=== PATIENT | female | born 1970 | race Caucasian/White ===

== ENCOUNTER 2020-11-03 08:55 | Outpatient (REF) | payer BC, OTHER, SELFPAY ==
--- NOTE | ~2020-11-03 | MM_ITS ---
EXAMINATION: MM SCREENING DIGITAL BREAST TOMOSYNTHESIS, BILATERAL CLINICAL INFORMATION: Screening. Asymptomatic. The lifetime risk of breast cancer based on the Tyrer-Cuzick Model is 16%. COMPARISON: Mammography: 01/16/2019, and prior exams dating back to 08/25/2013. Comparison also made with right breast ultrasound 08/17/2016, left breast ultrasound 08/25/2013. TECHNIQUE: Digital breast tomosynthesis is performed in both the craniocaudal and mediolateral oblique views along with computer-aided detection (CAD). Synthesized 2D images are generated from the tomosynthesis. Additional right MLO view is provided. FINDINGS: The breasts are heterogeneously dense, which may obscure small masses (ACR BI-RADS breast composition Category c). There is fine fibronodular parenchymal pattern. Left breast has oval smooth circumscribed masses posterior upper outer quadrant, larger 3 cm consistent with waxing and waning cysts noted on prior imaging. Neither breast shows significant mass or architectural abnormality. There are scattered bilateral calcifications again seen similar to prior exam. The axilla and skin contours are unremarkable. MM/MM tomosynthesis screening BI IMPRESSION: 1. No significant changes from prior studies. 2. Fibrocystic changes upper outer left breast similar to prior exams. ASSESSMENT: BI-RADS 2: Benign RECOMMENDATION: Routine annual mammography screening. This patient's information was entered into a reminder system with a target due date for their next mammogram.
== END 2020-11-03 08:56 | disposition home or self-care (01) ==
LOC: HO.MAMMO 08:55
PROVIDERS: Visit Provider Family Medicine
DX: Z12.31 Encounter for screening mammogram for malignant neoplasm of breast (principal)
CPT/HCPCS: 77063; 77067

== ENCOUNTER 2021-12-23 10:58 | Outpatient (REF) | payer BC, OTHER, SELFPAY ==
--- NOTE | ~2021-12-23 | MM_ITS ---
EXAMINATION: MM SCREENING DIGITAL BREAST TOMOSYNTHESIS, BILATERAL CLINICAL INFORMATION: Screening. Asymptomatic. The lifetime risk of breast cancer based on the Tyrer-Cuzick Model is 14%. COMPARISON: Mammography: 11/03/2020, 08/19/2018, 10/29/2017, ultrasound right breast 08/17/2016, ultrasound left breast 08/25/2013. TECHNIQUE: Digital breast tomosynthesis is performed in both the craniocaudal and mediolateral oblique views along with computer-aided detection (CAD). Synthesized 2D images are generated from the tomosynthesis. FINDINGS: The breasts are heterogeneously dense, which may obscure small masses (ACR BI-RADS breast composition Category c). There is fibrocystic parenchymal pattern with waxing and waning cysts. There is no significant mass. No architectural abnormality. Scattered bilateral isolated and small grouped calcifications are similar to prior studies. The axilla and skin contours are unremarkable. No significant changes from prior exam. MM/MM tomosynthesis screening BI IMPRESSION: No significant changes from prior study. ASSESSMENT: BI-RADS 2: Benign RECOMMENDATION: Routine annual mammography screening. This patient's information was entered into a reminder system with a target due date for their next mammogram.
== END 2021-12-23 10:59 | disposition home or self-care (01) ==
LOC: HO.MAMMO 10:58
PROVIDERS: PCP Family Medicine; Visit Provider Family Medicine
DX: Z12.31 Encounter for screening mammogram for malignant neoplasm of breast (principal)
CPT/HCPCS: 77063; 77067

== ENCOUNTER 2025-02-09 08:45 | Outpatient (REF) | payer BC, OTHER, SELFPAY ==
--- OUTSIDE RECORDS SUMMARY | 2025-02-08 23:59 | XMS_ITS | Continuity of Care Document ---
Author Organization [facility] Address [address] [place] [address]- Care Team Providers Care Skin Diving Teacher Name Role Phone Feliciano DEWEY, Francesca Grayson Primary Care Physici an Encounter [facility] Date(s): 01/09/25 - 02/08/25 [facility] [address], [place] [address] Attending Physician: AdmEliceo lindsay Admitting Physician: AdmtrEliceo Referring Physician: Admtr, Ar8 Encounter Type: Triage Allergies, Adverse Reactions, Alerts Substance Criticality Severity Reaction Reaction Severity Status Biaxin High criticality Severe face swells A ctive Levaquin Active Immunizations Given and Recorded Vaccine Date Status Refusal Reason influenza virus vaccine, inactivated 06/05/23 Tian rded influenza virus vaccine, inactivated 06/09/22 Tian rded influenza virus vaccine, inactivated 03/29/21 Tian rded influenza virus vaccine, inactivated 03/09/20 Tian rded influenza virus vaccine, inactivated 03/31/19 Tian rded influenza virus vaccine, inactivated 04/23/18 Tian rded SARS-CoV-2 (COVID-19) mRNA-1273 vaccine 12/10/20 R ecorded SARS-CoV-2 (COVID-19) mRNA-1273 vaccine 11/12/20 R ecorded Medications Advair HFA 230 mcg / 21 mcg 2 inhalation, Inhalation, 2 times a day, for 90 days, rinse mouth and throat after use, # 3 each, 3Refills, Hard Stop 11/02/25 12:54:00 PM EDT, 11/07/24 12:54:00 PM EDT, Aerosol, [id number], Partial fill upon patient request if the prescription is for a schedule II opioid drug., 158, cm, 11/06/24 15:30:00 EDT, Height Start Date: 11/07/24 Stop Date: 11/02/25 Status: Ordered Quantity: 3.0 Unit: each Repeat number: 4 Indications: Moderate persistent asthma, uncomplicated; Advair HFA 230 mcg / 21 mcg 2 inhalation, Inhalation, 2 times a day, rinse mouth and throat after use, # 3 each, 3 Refills, Maintenance, 11/02/25 12:54:00 PM EDT, Aerosol, [id number], Partial fill upon patientrequest if the prescription is for a schedule II opioid drug., 2 inhalation Inhalation 2 times a day,x90 days,Instr:rinse mouth and throat after use, 158, cm, 01/09/25 9:36:00 EDT, Height Start Date: 11/02/25 Stop Date: 10/28/26 Status: Ordered Quantity: 3.0 Unit: each Repeat number: 4 Indications: Moderate persistent asthma, uncomplicated; Albuterol (Eqv-ProAir HFA) 90 mcg/inh inhalation aerosol 1 inhalation = 90 mcg, Inhalation, Every 4 hours, PRN as needed for shortness of breath or wheezing, # 18 Gm, 2 Refills, Maintenance, 11/06/24 5:00:00 PM EDT, Aerosol, [id number], Partial fill upon patient request if the prescription is for a schedule II opioid drug., 1 inhalationInhalation Every 4 hours,PRN:as needed for shortness of breath or wheezing, 158, cm, 11/06/24 15:30:00 EDT, Height Start Date: 11/06/24 Status: Ordered Quantity: 18.0 Unit: g Repeat number: 3 Indications: Moderate persistent asthma, uncomplicated; Calcium Carbonate By Mouth, 0 Refills, Maintenance, 12/05/12 2:13:28 PM EDT Start Date: 12/05/12 Status: Ordered Repeat number: 1 citalopram 20 mg oral tablet 20 mg, 1, tablet, By Mouth, Daily, # 90 tablet, Refills 1, Tot. Refills 1, Maintenance, 12/22/24 8:00:00 AM EDT, Route to Pharmacy Electronically, [id number], Partial fill upon patient request if the prescription is for a schedule II opioid drug., 158, cm, 11/06/24 15:30:00 EDT, Height Start Date: 12/22/24 Status: Ordered Quantity: 90.0 Unit: tablet Repeat number: 2 Indications: Anxiety disorder, unspecified; progesterone 100 mg oral capsule 1 capsule = 100 mg, By Mouth, Daily at bedtime, for 90 days, # 90 capsule, 3 Refills, Acute :07:00 PM EDT, 11/06/24 5:07:00 PM EDT, [id number], Partial fill upon patient request if the prescription is for a schedule II opioid drug., 158, cm, 11/06/24 15:30:00 EDT, Height Start Date: 11/06/24 Stop Date: 11/01/25 Status: Ordered Quantity: 90.0 Unit: capsule Repeat number: 4 Indications: Anxiety disorder, unspecified; Menopausal and female climacteric states; Singulair = 10 mg, By Mouth, Daily before dinner, 0 Refills, Maintenance, 12/05/12 2:11:35 PM EDT Start Date: 12/05/12 Status: Ordered Repeat number: 1 Vitamin D3 By Mouth, 0 Refills, Maintenance, 12/05/12 2:11:47 PM EDT Start Date: 12/05/12 Status: Ordered Repeat number: 1 Zyrtec-D 1 tablet, By Mouth, 2 times a day, 0 Refills, Maintenance, 12/05/12 2:13:08 PM EDT Start Date: 12/05/12 Status: Ordered Repeat number: 1 Problem List Condition Confirmation Course Effective Dates Status H ealth Status Informant Moderate persistent asthma Confirmed Active Breast cyst Confirmed Active Community acquired pneumonia Confirmed Active Hyperlipidemia Confirmed Active Migraine with aura Confirmed Active Severe obesity Confirmed Active Social History Social History Type Response Smoking Status Never (less than 100 in lifetime) entered on: 02/24/19 Sex Sex Representation Female (finding) Patient Care team information Care Team Personnel Name: Francesca Wiggins NP Position: [facility] Associate Professional Member Role: PCP Address: [address] [place] [address] [place] [address]- Telecom: Care Team Related Persons Name: FLORENCIO ARANDA Insurance Providers Guarantor name: ALEXUS ARANDA Health Plan Information #: 1 Payer: [employer] Payer Identifier: NA Member Number: [id number] Group Number: [id number] Subscriber Identifier: [id number] Relationship to Subscriber: spouse Coverage Type: NA Coverage Verification Date: NA Telecom: NA Address: NA Health Plan Information #: 2 Payer: [facility] Payer Identifier: NA Member Number: [id number] Group Number: [id number] Subscriber Identifier: [id number] Relationship to Subscriber: spouse Coverage Type: () Coverage Verification Date: NA Telecom: NA Address: NA
--- NOTE | ~2025-02-09 | MM_ITS ---
EXAMINATION: MM SCREENING DIGITAL BREAST TOMOSYNTHESIS, BILATERAL CLINICAL INFORMATION: Screening. Asymptomatic. COMPARISON: Comparison made to multiple prior, most recent December 23, 2021, and most remote October 29, 2017. TECHNIQUE: Digital breast tomosynthesis is performed in both the craniocaudal and mediolateral oblique views along with computer-aided detection (CAD). FINDINGS: BREAST COMPOSITION: The breasts are heterogeneously dense, which may obscure small masses (ACR BI-RADS breast composition Category c). BILATERAL BREASTS: No significant masses, suspicious calcifications or other abnormalities are seen in either breast. MM/MM tomosynthesis screening BI IMPRESSION: BILATERAL BREASTS: Negative, no mammographic evidence of malignancy. Normal interval follow-up is recommended in 12 months. ASSESSMENT: BI-RADS 1 - Negative RECOMMENDATION: Routine annual mammography screening. FOLLOW-UP: 1 year F/U This examination should not preclude the clinical evaluation of a suspicious palpable abnormality. This patient's information was entered into a reminder system with a target due date for their next mammogram. Electronically signed by: Harpreet Dominguez MD 02/10/2025 05:33 PM EDT
--- OUTSIDE RECORDS SUMMARY | 2025-02-09 09:08 | XMS_ITS | Clinical Summary ---
Author Organization [facility] Address [address] [place] [phone] Phone Care Team Providers Care Software Client Architect Name Role Phone Pcp, Unknown Primary Care Provider Unavailabl e Allergies Active Allergy Reactions Criticality Noted Date Comments Clarithromycin Medium 09/24/2019 PT Was not 100% sure that this was the name of the med Medications fluticasone propion-salmete roL (ADVAIR DISKUS) 250-50 mcg/dose DISKUS Inhale 250 mcg/actuation of fluticasone into the lungs 2 (two) times a day. Active gabapentin (NEURONTIN) 300 MG capsule Take 300 mg by mouth 3 (three) times a day. For migraines Active Active Problems No known active problems Social History Tobacco Use Types Packs/Day Years Used Date Smoking Tobacco: Never Smokeless Tobacco: Never Alcohol Use Standard Drinks/Week Comments Never 0 (1 standard drink = 0.6 oz pur e alcohol) Education Answer Date Recorded Are you interested in more education? Not on jules e 10/20/2022 Are you concerned about learning? Not on file 10/20/2022 No 10/20/2022 No 10/20/2022 Digital Access Answer Date Recorded No 11/18/2022 No 11/18/2022 No 11/18/2022 Reliable internet access at home? Not on file 11/18/2022 Device with a working camera? Not on file Comments Unknown Sex and Gender Information Value Date Recorded Sex Assigned at Female 09/24/2019 12:47 PM EDT Legal Sex Female 9:34 PM EDT Gender Identity Female 09/24/2019 12:47 PM EDT Sexual Orientation Not on file Last Filed Vital Signs Vital Sign Reading Time Taken Comments Blood Pressure 122/70 01/15/2020 3:32 PM EDT Pulse 70 01/15/2020 3:32 PM EDT Temperature 35.8 C (96.5 F) 01/15/2020 3:32 PM EDT Respiratory Rate 16 01/15/2020 3:32 PM EDT Oxygen Saturation 98% 01/15/2020 3:32 PM EDT Inhaled Oxygen Concentration - - Weight 86.2 kg (190 lb) 01/15/2020 3:32 PM EDT Height 157.5 cm (5' 2 ) 01/15/2020 3:32 PM EDT Body Mass Index 34.75 01/15/2020 3:32 PM EDT Plan of Treatment Health Maintenance Due Date Last Done Comments Adult Td,Tdap Booster 1970 LIPID PANEL 1970 DEPRESSION SCREENING 1982 HEPATITIS C SCREENING 1988 HIV ONE-TIME SCREENING (18-6 5 YEARS) 1988 PAP SMEAR 1991 MAMMOGRAM 2010 COLOGUARD 2015 COLONOSCOPY 2015 COLORECTAL CANCER SCREENING 2015 FIT TEST 2015 FOBT 2015 SIGMOIDOSCOPY 2015 VIRTUAL COLONOSCOPY 2015 PNEUMOCOCCAL VACCINES (50+ years) (1 of 1 - PCV) 2020 ZOSTER VACCINES (1 of 2) 2020 COVID-19 VACCINE (3 - 2023-2 5 season) 2024 12/10/2020, 11/12/2020 SMOKING STATUS SCREENING (On ce After 26 Yrs) Completed 01/15/2020 HEPATITIS A VACCINES Aged Out No long er eligible based on patient's age to complete this topic HIB VACCINES Aged Out No longer eligi ble based on patient's age to complete this topic MENINGOCOCCAL VACCINES (ACWY) Aged Out No longer eligible based on patient's age to complete this topic MENINGOCOCCAL VACCINES (B) Aged Out N o longer eligible based on patient's age to complete this topic Medical [place] [address] [facility] [employer] [facility] [employer] [facility] [place] [employer] [facility] [employer] Member Subscriber Plan / Payer (Ef fective 2020-Present) Name:Alexus Aranda Member ID:[id number] Relation to Subscriber:Employee Name:ALEXUS ARANDA Subscriber ID:[id number] Date of :1970 (Home) Address: [address] [place] [address] Payer ID:Not on file Group ID:Not on file Type:Indemnity Address: [facility] [place] [address], [place] [address] [place] [address] [employer] Care Teams Software Client Architect Relationship Specialty Start Date End Date Pcp, Unknown PCP - General 09/24/19 Additional Source Comments The information contained in this document represents components of the legal health record. It is not the complete legal health record.[facility]
== END 2025-02-09 08:46 | disposition home or self-care (01) ==
LOC: HO.MAMMO 08:45
PROVIDERS: Visit Provider Family Medicine
DX: Z12.31 Encounter for screening mammogram for malignant neoplasm of breast (principal)
CPT/HCPCS: 77063; 77067

== ENCOUNTER → 2025-02-09 09:00 | Outpatient (BNV) | payer BC, OTHER, SELFPAY | PROVIDERS: Visit Provider Radiology Body Imaging | DX: Z12.31 Encounter for screening mammogram for malignant neoplasm of breast (principal) | CPT/HCPCS: 77063; 77067 ==